=== PATIENT | female | born 1995 | race Caucasian/White ===

== ENCOUNTER 2023-08-19 14:58 | Emergency (ER) | payer OTHER ==
[~2023-08-19] VITALS: Ht 162.6 cm; Wt 81.6 kg
[2023-08-19 16:59] LABS: BASOPHILS # (AUTO) 0.05 K/uL (0.00-0.20); BASOPHILS % (AUTO) 0.5 % (0.0-5.0); CREATININE 0.8 mg/dL (0.5-1.0); EOSINOPHILS # (AUTO) 0.07 K/uL (0.00-0.70); EOSINOPHILS % (AUTO) 0.7 % (0.0-8.0); HEMATOCRIT 38.7 % (36-48); IMMATURE GRANULOCYTE ABSOLUTE 0.04 K/uL (0-1); LYMPHOCYTES # (AUTO) 1.8 K/uL (1.0-4.8); LYMPHOCYTES % (AUTO) 16.7 % (21.0-51.0); MEAN CORPUSCULAR HEMOGLOBIN 31.4 pg (27.0-33.0); MEAN CORPUSCULAR HGB CONC 35.4 g/dL (32.0-36.0); MEAN CORPUSCULAR VOLUME 88.8 fL (79-99); MONOCYTES # (AUTO) 0.5 K/uL (0.1-1.0); MONOCYTES % (AUTO) 4.3 % (3.0-13.0); NEUTROPHILS # (AUTO) 8.2 K/uL (1.8-7.7); NEUTROPHILS % (AUTO) 77.4 % (40.0-77.0); PLATELET COUNT (AUTO) 249 K/uL (130-400); POTASSIUM 3.9 mmol/L (3.5-5.1); RED BLOOD CELL COUNT(AUTO) 4.36 MIL/uL (4.00-5.50); RED CELL DISTRIBUTION WIDTH 12.1 % (11.0-15.5); WHITE BLOOD COUNT (AUTO) 10.6 K/uL (4.8-10.8)
[2023-08-19 17:30] LABS: ALBUMIN 3.8 g/dL (3.5-5.0); BILIRUBIN,TOTAL 0.5 mg/dL (0.2-1.0); TOTAL PROTEIN, SERUM 7.6 g/dL (6.0-8.3)
[2023-08-19 17:43] LABS: APPEARANCE,URINE CLEAR (CLEAR); BILIRUBIN,URINE NEGATIVE (NEGATIVE); COLOR,URINE LIGHT-YELLOW (YELLOW); GLUCOSE, URINE (UA) NEGATIVE (NEGATIVE); KETONES,URINE 40 mg/dL (NEGATIVE); LEUKOCYTE ESTERASE ,URINE NEGATIVE Leu/uL (NEGATIVE); NITRATE,URINE NEGATIVE (NEGATIVE); OCCULT BLOOD,URINE NEGATIVE (NEGATIVE); PH,URINE 6.5 (5.0-8.0); PROTEIN,URINE NEGATIVE (NEGATIVE); UROBILINOGEN,URINE 0.2 mg/dL (0.2-1.0)
[2023-08-19 17:50] LABS: ADD UA MICROSCOPIC YES
[2023-08-19 17:51] LABS: MUCUS,URINE RARE LPF (None Seen); RBC,URINE 0-1 /HPF (0-1); SQUAMOUS EPITHELIAL CELL,UR FEW /HPF (0-2)
[2023-08-19] MEDS ORDERED: GING250C PO (18:21)
[2023-08-19] MEDS ORDERED: PREN1CAP27 PO (18:21)
[2023-08-19 18:43] VITALS: BP 121/83; PULSE 89; RESP 18; O2SAT 99
== END 2023-08-19 18:53 | disposition home or self-care (01) ==
LOC: EDH 14:58
DX: O20.0 Threatened abortion (principal); O26.891 Other specified pregnancy related conditions, first trimester; R10.2 Pelvic and perineal pain; R11.0 Nausea; I10 Essential (primary) hypertension; F31.9 Bipolar disorder, unspecified; Z3A.01 Less than 8 weeks gestation of pregnancy
CPT/HCPCS: 36415; 76801; 80053; 81001; 84702; 85025

== ENCOUNTER 2023-12-20 14:09 | Observation (INO) | payer OTHER, MEDICAID ==
[~2023-12-20] VITALS: Ht 162.6 cm; Wt 89.8 kg
[~2023-12-20 14:09] MED LIST: GING250C PO; PREN1CAP27 PO
[2023-12-20 14:11] VITALS: BP 134/80; PULSE 105; RESP 18
[2023-12-20 14:52] LABS: APPEARANCE,URINE CLEAR (CLEAR); BILIRUBIN,URINE NEGATIVE (NEGATIVE); COLOR,URINE LIGHT-YELLOW (YELLOW); GLUCOSE, URINE (UA) NEGATIVE (NEGATIVE); KETONES,URINE NEGATIVE (NEGATIVE); LEUKOCYTE ESTERASE ,URINE NEGATIVE Leu/uL (NEGATIVE); NITRATE,URINE NEGATIVE (NEGATIVE); OCCULT BLOOD,URINE NEGATIVE (NEGATIVE); PH,URINE 6.5 (5.0-8.0); PROTEIN,URINE NEGATIVE (NEGATIVE); UROBILINOGEN,URINE 0.2 mg/dL (0.2-1.0)
[2023-12-20 14:53] LABS: ADD UA MICROSCOPIC NO
[2023-12-20] MEDS: acetaMINOPHEN 500 MG TABLET PO ONE (15:53)
== END 2023-12-20 16:05 | disposition home or self-care (01) ==
LOC: EDH 14:09 → LDH 14:10
PROVIDERS: ADMIT Obstetrics & Gynecology; ATTEND Obstetrics & Gynecology
DX: O62.9 Abnormality of forces of labor, unspecified (principal); Z3A.24 24 weeks gestation of pregnancy
CPT/HCPCS: 81003; G0378 ×2; G0379; 59025

== ENCOUNTER 2024-01-26 16:25 | Emergency (ER) | payer OTHER, MEDICAID ==
[~2024-01-26] VITALS: Ht 162.6 cm; Wt 92.1 kg
--- NOTE | 2024-01-26 16:41 | ERN ---
ED Note History of Present Illness Stated Complaint: RT LOWER BACK PAIN RADIATING DOWN RT LEG/NUMBNESS Chief Complaint: Low Back Pain/Injury Time Seen by MD: 16:30 Dictation: PATIENT IS A 28-YEAR-OLD FEMALE HERE WHO IS 31 WEEKS COMPLAINING OF RIGHT LUMBAR PAIN WITH SCIATICA THAT RADIATES DOWN THE BACK LEG AND TO THE FRONT OF THE RIGHT THIGH ONSET 3-4 DAYS PRIOR TO ARRIVAL. SHE STATES SHE HAS HAD NO FEVER NO CHILLS NO NAUSEA VOMITING NO HISTORY OF BACK INJURIES OR SURGERIES. PATIENT OF DR. FATMATA BYNUM, SHE SAID SHE DID NOT SPEAK TO HIM WHEN THIS WAS HAPPENING DURING THE WEEK AND HAS TAKEN TYLENOL ONLY ONCE YESTERDAY. Allergies: Coded Allergies: No Known Allergies (Unverified Allergy, Unknown, 08/19/23) Home Meds Active Scripts #92/Iron/FA #8/Ps-Dha (Enbrace Hr Softgel) 1.5 Mg Iron-8.73 Mg-6.4 Mg Cap.ir.dr, 1 EACH PO DAILY, #30 CAPSULE. Prov:LION SUBRAMANIAN 08/19/23 Brenda Root (Brenda) 250 Mg Capsule, 250 MG PO TIDP PRN for nausea, #30 CAP Prov:LION SUBRAMANIAN 08/19/23 Past Medical History Past Medical History: Hypertension Surgical History: None PSYCH History: no pertinent psych hx : 1 Para: 0 Aborts: 0 RN Note Reviewed/Agreed w/PFSH: Yes Review of System Dictation CONSTITUTIONAL: NEGATIVE EXCEPT FOR HPI HEAD/FACE: NEGATIVE EXCEPT FOR HPI EENT: NEGATIVE EXCEPT FOR HPI RESPIRATORY: NEGATIVE EXCEPT FOR HPI GASTROINTESTINAL/ABDOMINAL: NEGATIVE EXCEPT FOR HPI GENITOURINARY: NEGATIVE EXCEPT FOR HPI MUSCULOSKELETAL: NEGATIVE EXCEPT FOR HPI RIGHT LUMBAR PAIN WITH SCIATICA INTEGUMENTARY: NEGATIVE EXCEPT FOR HPI NEUROLOGICAL/PSYCH: NEGATIVE EXCEPT FOR HPI HEMATOLOGIC/LYMPHATIC: NEGATIVE EXCEPT FOR HPI ALL SYSTEMS NEGATIVE, EXCEPT NOTED ABOVE. 13 POINT REVIEW OF SYSTEMS ASSESSED AND ALL NEGATIVE EXCEPT FOR ABOVE. Initial Vital Sign VS Vital Signs Date Time Temp Pulse Resp B/P (MAP) Pulse Ox O2 Delivery O2 Flow Rate FiO2 01/26/24 16:26 99.1 91 14 132/82 100 Room Air 0 01/26/24 17:17 21 Physical Exam Dictation VITAL SIGNS REVIEWED GENERAL APPEARANCE: ALERT, ORIENTED X 3, MILD ACUTE DISTRESS, WELL DEVELOPED, NOURISHED. HEAD AND FACE: NON-TRAUMATIC. EYES: PERRL, PINK CONJUNCTIVAS, EYELID NO TRAUMA, ANTERIOR CHAMBER WITH ARCUS SENILIS. EARS: PINNAS INTACT AND NO SIGNS OF TRAUMA OR ERYTHEMA EAR CANALS CLEAR AND NO DISCHARGE TM NO ERYTHEMA NOSE: NO DISCHARGE, NO BLEEDING. OROPHARYNX: MOUTH NORMAL, TONGUE PINK, PHARYNX CLEAR,NO ERYTHEMA, TONSILS NO EXUDATES, NO ABSCESSES NOTED, MUCOUS MEMBRANE MOIST NECK: SUPPLE, NON-TENDER, NO THYROMEGALY, NO MASSES, NO JVD, NO BRUITS BREAST:DEFERRED CHEST:NO TENDERNESS, NO CREPITUS, NO PARADOXICAL MOVEMENT, NO RETRACTIONS LUNGS:CLEAR, WELL-VENTILATED, SYMMETRIC, NO RALES, NO WHEEZING, NO RHONCHI, NO STRIDOR, GOOD BREATH SOUNDS BILATERALLY HEART: REGULAR RATE, REGULAR RHYTHM, NO MURMUR, NO GALLOPS VASCULAR: NO PERIPHERAL EDEMA, ABDOMEN: SOFT, POSITIVE BOWEL SOUNDS, NONDISTENDED, NO GUARDING, NONTENDER, NO REBOUND, NO MASSES NO HEPATOMEGALY, NO SPLENOMEGALY, NO BARRY'S SIGN, NO HERNIAS. RECTAL: DEFERRED GENITAL: DEFERRED NEUROLOGICAL: NORMAL SPEECH, MOTOR FUNCTION INTACT, SENSORY FUNCTION INTACT MUSCULOSKELETAL: NECK NONTENDER, FULL RANGE OF MOTION, DIFFUSE LUMBAR TENDERNESS GREATER ON THE RIGHT, FULL RANGE OF MOTION, EXTREMITIES: NONTENDER, FULL RANGE OF MOTION SKIN: COLOR PINK, DRY, NO TURGOR, NO RASH, NO LACERATIONS, NO ABRASIONS, NO CONTUSIONS. LYMPHATIC: DEFERRED Results (Laboratory/Radiology) Laboratory/Radiology HEART TONES 146 PATIENT IS IN A LEFT LATERAL RECUMBENT POSITION OFF THE VENA CAVA STATES THE PAIN IS BETTER TO HER LUMBAR BACK HOWEVER SHE STILL FEELS IT. I ADVISED HER I WOULD BE WRITING HER OUT OF WORK BECAUSE SHE SAID SHE SITS ALL DAY AND HAVE HER GET CLEARED BY DR. BYNUM. Labs Reviewed?: Yes ED Course ED Course Medical Decision Making MDM MEDICAL DISCHARGE MAKING BASED ON EMPIRIC TREATMENT OF A WOMAN WITH LUMBAR RADICULOPATHY PATIENT WAS GIVEN PLAIN TYLENOL PLACED IN A LEFT LIGHT POSITION PAIN IS RELIEVED WITH NOT SITTING ON HER RIGHT GLUTEUS WRITTEN OUT OF WORK TO SHE IS CLEARED BY HER DOCTOR DX & DISP Disposition: Discharge Departure Impression: Primary Impression: Lumbar radiculopathy, acute Additional Impression: Condition: Stable Additional Instructions: FOLLOW-UP WITH PRIMARY CARE PROVIDER IN 1 TO 2 DAYS. TAKE MEDICATIONS DIRECTED HERE IN THE EMERGENCY ROOM. OKAY TO CONTINUE HOME MEDICATIONS UNLESS OTHERWISE DISCUSSED DURING YOUR VISIT IN THE EMERGENCY ROOM TODAY. RETURN TO YOUR NEAREST EMERGENCY ROOM IF SYMPTOMS WORSEN OR IF THERE IS NO IMPROVEMENT. CALL 911 IF YOU NEED IMMEDIATE ASSISTANCE. TAKE [id number] NEEDED AND IF NO CONTRAINDICATIONS ARE PRESENT. INCREASE ORAL HYDRATION. A WOUND CULTURE OR URINE CULTURE WAS ORDERED HERE IN THE EMERGENCY ROOM DEPARTMENT PLEASE FOLLOW-UP WITH PRIMARY CARE PROVIDER AND ADVISE THEM TO GET REPEAT PORTS FROM OUR FACILITY. IF YOU HAD ANY DREW WRAP/SPLINTS THAT WERE APPLIED HERE, PLEASE DO NOT REMOVE THEM UNTIL YOU SEE YOUR PRIMARY CARE OR SPECIALTY. NO WORK UNTIL CLEARED BY YOUR RETURN TO VENDOR DOCTOR IN 1-2 DAYS. DO NOT LAY FLAT ON YOUR BACK, LEG, SLIGHTLY TO THE LEFT. USE WARM COMPRESSES TO BACK PAIN THREE TO 4 TIMES A DAY AND TAKE TYLENOL FOR PAIN. Referrals: SELF,REFERRAL (PCP) Time of Disposition: 17:10 I have reviewed the case, and I agree with, Diagnosis and Plan I performed the substantive portion of the visit. I have reviewed and personally made and approve the management plan that is documented in the note by myself or the [facility]. I acknowledge full responsibility for the patient's management plan. LORETTA MORTON NP Jan 26, 2024 16:41 JEFF BRADY MD Mar 10, 2024 17:45
[2024-01-26] MEDS: acetaMINOPHEN 500 MG TABLET PO ONE (17:04)
--- NOTE | 2024-01-26 17:05 | NUR ---
HEART TONE 146 BPM
[2024-01-26 17:17] VITALS: BP 115/62; PULSE 78; RESP 17; TEMP 98.8; O2SAT 98
== END 2024-01-26 17:26 | disposition home or self-care (01) ==
LOC: EDH 16:25
DX: O26.893 Other specified pregnancy related conditions, third trimester (principal); M54.16 Radiculopathy, lumbar region; I10 Essential (primary) hypertension; Z3A.29 29 weeks gestation of pregnancy; Z79.899 Other long term (current) drug therapy
CPT/HCPCS: 99282

== ENCOUNTER 2024-02-24 18:42 | Observation (INO) | payer OTHER, MEDICAID ==
[~2024-02-24] VITALS: Ht 162.6 cm; Wt 93.9 kg
[2024-02-24 18:43] VITALS: BP 148/104; PULSE 96; RESP 16; TEMP 98.5
[2024-02-24 19:27] LABS: APPEARANCE,URINE CLOUDY (CLEAR); BILIRUBIN,URINE NEGATIVE (NEGATIVE); COLOR,URINE LIGHT-YELLOW (YELLOW); GLUCOSE, URINE (UA) NEGATIVE (NEGATIVE); KETONES,URINE NEGATIVE (NEGATIVE); LEUKOCYTE ESTERASE ,URINE 75 Leu/uL (NEGATIVE); NITRATE,URINE NEGATIVE (NEGATIVE); OCCULT BLOOD,URINE NEGATIVE (NEGATIVE); PROTEIN,URINE NEGATIVE (NEGATIVE); UROBILINOGEN,URINE 0.2 mg/dL (0.2-1.0)
[2024-02-24 19:28] LABS: ADD UA MICROSCOPIC YES
[2024-02-24 19:30] LABS: BACTERIA,URINE RARE /HPF (None Seen); OTHER CASTS, URINE 1 /LPF (None Seen); RBC,URINE 0-1 /HPF (0-1); SQUAMOUS EPITHELIAL CELL,UR FEW /HPF (0-2); WBC,URINE 0-1 /HPF (0-1)
[2024-02-24] MEDS: LACTATED RINGERS 1000ML 1,000 ML IV SCH (20:22)
== END 2024-02-24 21:47 | disposition home or self-care (01) ==
LOC: EDH 18:42 → LDH 18:43 → EDH 18:55
PROVIDERS: ADMIT Obstetrics & Gynecology; ATTEND Obstetrics & Gynecology
DX: O36.8130 Decreased fetal movements, third trimester, not applicable or unspecified (principal); O26.893 Other specified pregnancy related conditions, third trimester; R10.9 Unspecified abdominal pain; O13.3 Gestational [pregnancy-induced] hypertension without significant proteinuria, third trimester; Z3A.33 33 weeks gestation of pregnancy
CPT/HCPCS: 96372; 96360; 96361; 87086; 81001; 76819; G0378 ×3; G0379; J7120; J3105

== ENCOUNTER 2024-03-26 17:42 | Observation (INO) | payer OTHER, MEDICAID ==
[~2024-03-26] VITALS: Ht 162.6 cm; Wt 101.6 kg
[2024-03-26] MEDS ORDERED: LACTATED RINGERS 1000ML 1,000 ML IV SCH (18:00)
[2024-03-26 18:36] LABS: APPEARANCE,URINE CLEAR (CLEAR); BILIRUBIN,URINE NEGATIVE (NEGATIVE); COLOR,URINE LIGHT-YELLOW (YELLOW); GLUCOSE, URINE (UA) NEGATIVE (NEGATIVE); KETONES,URINE NEGATIVE (NEGATIVE); LEUKOCYTE ESTERASE ,URINE 25 Leu/uL (NEGATIVE); NITRATE,URINE NEGATIVE (NEGATIVE); OCCULT BLOOD,URINE NEGATIVE (NEGATIVE); PH,URINE 6.5 (5.0-8.0); PROTEIN,URINE NEGATIVE (NEGATIVE); UROBILINOGEN,URINE 0.2 mg/dL (0.2-1.0)
--- NOTE | 2024-03-26 18:36 | HMCIMG ---
US FBP WO NON-STRESS HISTORY: Decreased movement COMPARISON: None TECHNIQUE: Ultrasound biophysical profile study was performed. FINDINGS: Patient scored a total of 8 points with 2 points each for breathing movements, gross body movements, tone and amniotic fluid volume. Fetus is in cephalic presentation with longitudinal lie. heart rate is 145 beats per minute. Amniotic fluid index is 11.7 centimeter. Placenta is located right laterally. IMPRESSION: 1. Normal ultrasound biophysical profile study.
[2024-03-26 18:39] LABS: ADD UA MICROSCOPIC YES
[2024-03-26 18:41] LABS: BACTERIA,URINE RARE /HPF (None Seen); MUCUS,URINE RARE LPF (None Seen); SQUAMOUS EPITHELIAL CELL,UR FEW /HPF (0-2); YEAST,URINE BUDDING FEW /HPF (None Seen)
== END 2024-03-26 19:15 | disposition home or self-care (01) ==
LOC: LDH 17:42
PROVIDERS: ADMIT Obstetrics & Gynecology; ATTEND Obstetrics & Gynecology
DX: O36.8130 Decreased fetal movements, third trimester, not applicable or unspecified (principal); O99.891 Other specified diseases and conditions complicating pregnancy; M54.9 Dorsalgia, unspecified; O13.3 Gestational [pregnancy-induced] hypertension without significant proteinuria, third trimester; Z3A.37 37 weeks gestation of pregnancy; Z79.899 Other long term (current) drug therapy
CPT/HCPCS: 59025; 81001; 76819; G0378 ×2; G0379